=== PATIENT | female | born 1970 | race African-American/Black ===

== ENCOUNTER 2018-04-13 10:14 | Emergency (ER) | payer OTHER ==
[2018-04-13 10:21] VITALS: BMI 36.1
[2018-04-13] MEDS ORDERED: LABETALOL HCL 5 MG/1 ML (100MG/20 ML VIAL) IVPUSH ONE (10:29)
[2018-04-13] MEDS ORDERED: levETIRAcetam 500 MG/5 ML INJECTION VIAL IVPB ONE (10:30)
[2018-04-13] MEDS ORDERED: SODIUM CHLORIDE 1,000 ML IV SCH (10:30)
[2018-04-13 10:32] VITALS: TEMP 98.8
--- NOTE | 2018-04-13 10:38 | PDOC ---
Attending Attestation - Resident Resident Name: Ole Kc - ED Attending Attestation I have performed the following: I have examined & evaluated the patient, The case was reviewed & discussed with the resident, I agree w/resident's findings & plan, Exceptions are as noted - HPI HPI: 04/13/18 10:38 48 F with no PMH presents to ED with - Physicial Exam PE: 04/13/18 10:44 "GENERAL: Awake, alert, and fully oriented, in no acute distress. HEAD: No signs of trauma EYES: PERRLA, EOMI, sclera anicteric, conjunctiva clear ENT: Auricles normal inspection, hearing grossly normal, nares patent, oropharynx clear without exudates. Moist mucosa NECK: Nontender, no stepoffs, Normal ROM, supple, no lymphadenopathy, JVD, or masses LUNGS: Breath sounds equal, clear to auscultation bilaterally. No wheezes, and no crackles HEART: Regular rate and rhythm, normal S1 and S2, no murmurs, rubs or gallops ABDOMEN: Soft, nontender, normoactive bowel sounds. No guarding, no rebound. No masses EXTREMITIES: Normal range of motion, no edema. No clubbing or cyanosis. No cords, erythema, or tenderness NEUROLOGICAL: + R facial droop, + RUE and RLE weakness, + diminished sensation R side, + mild aphasia and dysarthria SKIN: Warm, Dry, normal turgor, no rashes or lesions noted. - Critical Care Time Total Critical Care Time: 60 Critical Care Statement: The care of this patient involved high complexity decision making to prevent further life threatening deterioration of the patient 's condition and/or to evaluate & treat vital organ system(s) failure or risk of failure. - Medical Decision Making 04/13/18 10:45 48 F with new R side weakness, LKN last night. CT head shows acute bleed L frontal area. No midline shift. Pt mentating and alert. Suspect HTN bleed given BP >200 systolic. - Labs - HOB 30 degrees - Cardene gtt for BP control Pt accepted to [facility] by richard Alicia NIH Stroke Scale - Last Known Well Date/Time & Onset Date Last Known Well: 04/12/18 Time Last Known Well: 21:00 - Initial Evaluation Level of consciousness: Alert Ask patient the month and their age: Answers both correctly Ask patient to open & close eyes; make fist and let go: Obeys both correctly Best gaze (horizontal eye movement): Normal Visual field testing: No visual field loss Facial paresis (Show teeth/raise eyebrows/close eyes tight): Partial paralysis ( total or near paralysis of lower face) Motor Function: Left Arm: Normal Motor Function: Right Arm: No effort against gravity Motor Function: Left Leg: Normal (extends leg 30 degrees for 5 seconds without drift) Motor Function: Right Leg: Drift Limb Ataxia: Present in one limb Sensory(Use pinprick test arms,legs,trunk,face/side to side): Mild to moderate decrease in sensation Best language (Describe picture, name items, read sentences): Mild to moderate aphasia Dysarthria (read several words): Mild to moderate slurring of words Extinction and Inattention: No abnormality - Total Score NIH Stroke Scale Score: 10
[2018-04-13 10:39] LABS: BASO % 0.2 % (0-2.0); EOS % 0.8 % (0-4.5); HEMATOCRIT 36.1 % (32.4-45.2); HEMOGLOBIN 11.5 GM/dL (10.7-15.3); LYMPH % 9.6 % (8-40); MCH 28.5 pg (25.7-33.7); MEAN CELL VOLUME 89.2 fl (80-96); MEAN PLT VOLUME 8.5 fl (7.5-11.1); MONO % 3.8 % (3.8-10.2); NEUT % 85.6 % (42.8-82.8); PLATELET COUNT 333 K/MM3 (134-434); RBC 4.05 M/mm3 (3.60-5.2); RDW 14.4 % (11.6-15.6); WHITE BLOOD COUNT 11.5 K/mm3 (4.0-10.0)
[2018-04-13] MEDS ORDERED: NICARDIPINE 25 MG in DEXTROSE 5%-WATER - 240 ML IVPB SCH (10:45)
[2018-04-13 10:56] LABS: INR 0.92 (0.83-1.09); PROTHROMBIN TIME (PATIENT) 10.9 SEC (9.7-13.0)
--- NOTE | 2018-04-13 10:58 | PDOC ---
History of Present Illness - General Chief Complaint: CVA/TIA Stated Complaint: STROKE Time Seen by Provider: 04/13/18 10:16 History Source: Patient Exam Limitations: No Limitations - History of Present Illness Initial Comments: 04/13/18 11:08 48 yo F with no medical history without anti-coagulation presents to the emergency department with right sided weakness and right facial droop that began when she woke up this morning at approximately 9am. She went to bed at 9- 10 pm asymptomatic which is considered her last well known. Per the patient, she was unable to walk to the bathroom and EMS was called. On presentation, the patient was mentating well and denied recent head trauma. Denies the following: pain, fever, chills, ears/nose/throat pain, nausea, vomiting, visual changes, SOB, chest pain, abdominal pain, dysuria, hematuria, diarrhea, hematochezia, diarrhea, and leg pain/swelling Shx: None meds: none allergies: NKDA Social: Denies tobacco, alcohol, and substance abuse. 04/13/18 11:22 tPA Exclusion Checklist 0-3hr - Time Elapsed Date last known well: 04/12/18 Time last known well: 21:00 Elaspsed time: Day(s) and 14 Hour(s) and 19 Minutes - Thrombolytic Therapy Candidate Is the patient eligible for Thrombolytic Therapy?: No - Exclusion Criteria 0-3hr SBP greater than 185 or DBP greater than 110mmHg despite tx: Yes Recent IC/spinal surgery,head trauma or stroke w/in last 3mo: No Hx of previous IC hemorrhage, IC neoplasm, AVM or aneurysm: No Active internal bleeding: No Blding diathesis(low plt ct, inc PTT,INR>1.7 or use of NOAC): No Symptoms suggest subarachnoid hemorrhage: No CT demonstrates multilobar infarct(>1/3 cerebral hemiphere): No Arterial puncture at noncompressible site in previous 7 days: No Blood glucose concentration less than 50mg/dL (2.7mmol/L): No - Relative Exclusion Criteria 0-3h Life expectancy <1yr/severe co-morbid illness/[employer] on admit: No : No Patient/family refused: No Rapid improvement: No Stroke severity too mild: No Recent acute SC (w/in previous 3 months): No Seizure at onset with postictal residual neuro impairments: No Major surgery or serious trauma w/in previous 14 days: No Recent GI or hemorrhage (w/in previous 21 days): No - Ineligibility reason(s) Reasons No tPA given: See reason(s) noted above NIH Stroke Scale - Last Known Well Date/Time & Onset Date Last Known Well: 04/12/18 Time Last Known Well: 21:00 - Initial Evaluation Level of consciousness: Alert Ask patient the month and their age: Answers both correctly Ask patient to open & close eyes; make fist and let go: Obeys both correctly Best gaze (horizontal eye movement): Normal Visual field testing: No visual field loss Facial paresis (Show teeth/raise eyebrows/close eyes tight): Partial paralysis ( total or near paralysis of lower face) Motor Function: Left Arm: Normal Motor Function: Right Arm: No effort against gravity Motor Function: Left Leg: Normal (extends leg 30 degrees for 5 seconds without drift) Motor Function: Right Leg: Drift Limb Ataxia: Present in one limb Sensory(Use pinprick test arms,legs,trunk,face/side to side): Mild to moderate decrease in sensation (right leg) Best language (Describe picture, name items, read sentences): Mild to moderate aphasia Dysarthria (read several words): Mild to moderate slurring of words Extinction and Inattention: No abnormality - Total Score NIH Stroke Scale Score: 10 Past History - Past Medical History Allergies/Adverse Reactions: Allergies Allergy/AdvReac Type Severity Reaction Status Date / Time tomato Allergy Verified 04/13/18 10:17 Home Medications: Ambulatory Orders NK [No Known Home Medication] 04/13/18 COPD: No - Suicide/Smoking/Psychosocial Hx Smoking History: Unknown if ever smoked Have you smoked in the past 12 months: No Information on smoking cessation initiated: No Hx Alcohol Use: No Drug/Substance Use Hx: No Review of Systems - Review of Systems Able to Perform ROS?: Yes Is the patient limited Syriac proficient: No Constitutional: Yes: Weakness. No: Chills, Diaphoresis, Fever HEENTM: No: Eye Pain, Blurred Vision, Recent change in vision, Double Vision, Ear Pain, Nose Pain, Throat Pain, Mouth Pain Respiratory: No: Cough, Shortness of Breath, SOB with Exertion, Hemoptysis Cardiac (ROS): No: Chest Pain, Edema, Lightheadedness, Palpitations, Syncope, Chest Tightness ABD/GI: No: Constipated, Diarrhea, Nausea, Poor Appetite, Poor Fluid Intake, Rectal Bleeding, Vomiting, Indigestion, Abdominal cramping, Tarry Stools : No: Burning, Dysuria, Hematuria, Pain, Urgency Musculoskeletal: No: Back Pain, Gout, Joint Pain, Neck Pain Neurological: Yes: Numbness (right leg), Weakness (right arm leg and weakness), Ataxia. No: Headache, Paresthesia, Tingling, Tremors, Dizziness Psychiatric: No: Stressors Endocrine: No: Unexplained Weight Gain Hematologic/Lymphatic: No: Anemia *Physical Exam - Vital Signs Last Vital Signs Temp Pulse Resp BP Pulse Ox 98.8 F 92 H 18 222/111 H 100 04/13/18 10:32 04/13/18 10:40 04/13/18 10:40 04/13/18 10:40 04/13/18 10:41 - Physical Exam General Appearance: Yes: Nourished, Appropriately Dressed. No: Apparent Distress, Disheveled, Intoxicated HEENT: positive: EOMI, PRINCE, Normal Voice, Symmetrical, Pharynx Normal, Hearing Grossly Normal. negative: Pale Conjunctivae, Scleral Icterus (R), Scleral Icterus (L), Muffled/Hoarse voice, Nasal Congestion, Rhinorrhea, Sinus Tenderness, Excessive drooling Neck: positive: Trachea midline. negative: Tender, Lymphadenopathy (R), Lymphadenopathy (L), Tender lateral, Tender midline Respiratory/Chest: positive: Lungs Clear, Normal Breath Sounds. negative: Chest Tender, Respiratory Distress, Accessory Muscle Use Cardiovascular: positive: Regular Rhythm, Regular Rate, S1, S2. negative: Systolic Murmur Gastrointestinal/Abdominal: positive: Normal Bowel Sounds, Flat, Soft. negative : Tender, Distended Lymphatic: negative: Adenopathy Musculoskeletal: positive: Normal Inspection. negative: CVA Tenderness, Vertebral Tenderness Extremity: positive: Normal Capillary Refill, Normal Inspection, Normal Range of Motion. negative: Tender, Swelling, Calf Tenderness Integumentary: positive: Normal Color, Dry, Warm Neurologic: positive: Fully Oriented, Alert, Normal Mood/Affect, Normal Response , Facial Droop (right side), Sensory Deficit (right leg). negative: math tutor II-XII NML intact (refer to NIHSS), Motor Strength 5/5, EOM Palsy, Finger to Nose ( unable to do on right arm), Confused, Disoriented Moderate Sedation - Procedure Monitoring Vital Signs: Procedure Monitoring Vital Signs Temperature 98.8 F 04/13/18 10:32 Pulse Rate 92 H 04/13/18 10:40 Respiratory Rate 18 04/13/18 10:40 Blood Pressure 222/111 H 04/13/18 10:40 O2 Sat by Pulse Oximetry (%) 100 04/13/18 10:41 ED Treatment Course - LABORATORY CBC & Chemistry Diagram: 04/13/18 10:29 04/13/18 10:29 - ADDITIONAL ORDERS Additional order review: Laboratory Results 04/13/18 10:29 PT with INR 10.90 INR 0.92 04/13/18 10:29 RBC 4.05 MCV 89.2 MCHC 32.0 RDW 14.4 MPV 8.5 Neutrophils % 85.6 H Lymphocytes % 9.6 Monocytes % 3.8 Eosinophils % 0.8 Basophils % 0.2 - RADIOLOGY Radiology Studies Ordered: Category Date Time Status CHEST X-RAY PORTABLE* [RAD] Stat Radiology 04/13/18 10:28 Completed Medical Decision Making - Medical Decision Making 04/13/18 11:22 48 yo F with no medical history without anti-coagulation presents to the emergency department with right sided weakness and right facial droop that began when she woke up this morning at approximately 9am. Initial vitals: Initial Vital Signs Pulse Resp BP Pulse Ox 98 H 18 212/84 H 98 04/13/18 10:17 04/13/18 10:17 04/13/18 10:17 04/13/18 10:17 Work up: harry freire was called at initial presentation of the patient. concerning right arm weakness and right facial droop. will rule out CVA hemorrhage vs ischemia. Others in ddx include metabolic disturbance vs infectious etiology Laboratory Tests 04/13/18 04/13/18 04/13/18 10:29 10:29 10:29 WBC 11.5 H RBC 4.05 Hgb 11.5 Hct 36.1 MCV 89.2 MCH 28.5 MCHC 32.0 RDW 14.4 Plt Count 333 MPV 8.5 Absolute Neuts (auto) 9.8 H Neutrophils % 85.6 H Lymphocytes % 9.6 Monocytes % 3.8 Eosinophils % 0.8 Basophils % 0.2 Nucleated RBC % 0 PT with INR 10.90 INR 0.92 Sodium 137 Potassium 4.5 Chloride 104 Carbon Dioxide 29 Anion Gap 5 L BUN 25 H Creatinine 1.8 H Creat Clearance w eGFR 30.16 Random Glucose 264 H Calcium 8.4 L Total Bilirubin 0.3 AST 18 ALT 22 Alkaline Phosphatase 105 Creatine Kinase 199 H Creatine Kinase Index 1.3 CK-MB (CK-2) 2.7 Troponin I < 0.02 Total Protein 7.1 Albumin 2.9 L Triglycerides 115 Cholesterol 250 H Total LDL Cholesterol 139 H HDL Cholesterol [address] shows acute left cerebral hemorrhage. transfer call was [facility] to [facility]. Dr. Alicia accepted transfer. the patient was transferred with nicardipine drip running with titration to goal SBP of 160 mmhg. Dispo: Transfer 04/13/18 11:24 *DC/Admit/Observation/Transfer Diagnosis at time of Disposition: Cerebrovascular accident (CVA) Qualifiers: CVA mechanism: unspecified Qualified Code(s): I63.9 - Cerebral infarction, unspecified - Referrals Referrals: Peterson Luna MD [Primary Care Provider] - - Patient Instructions - Post Discharge Activity
[2018-04-13 11:07] LABS: ALBUMIN 2.9 g/dl (3.4-5.0); ALK PHOS 105 U/L (45-117); ANION GAP 5 MMOL/L (8-16); BILIRUBIN,TOTAL 0.3 mg/dL (0.2-1); BLOOD UREA NITROGEN 25 mg/dL (7-18); CALCIUM 8.4 mg/dL (8.5-10.1); CHLORIDE 104 mmol/L (98-107); CHOLESTEROL 250 mg/dL (50-200); CO2 29 mmol/L (21-32); CREATININE 1.8 mg/dL (0.55-1.3); GLUCOSE,RANDOM 264 mg/dL (74-106); HDL CHOLESTEROL 82 mg/dL (40-60); POTASSIUM 4.5 mmol/L (3.5-5.1); SGOT/AST 18 U/L (15-37); SGPT/ALT 22 U/L (13-61); SODIUM 137 mmol/L (136-145); TOT PROT 7.1 g/dl (6.4-8.2); TRIGLYCERIDES 115 mg/dL (0-150)
[2018-04-13 11:14] VITALS: BP 180/81; PULSE 98
--- NOTE | 2018-04-13 15:42 | EKG ---
Test Reason : Blood Pressure : / mmHG Vent. Rate : 092 BPM Atrial Rate : 092 BPM P-R Int : 128 ms QRS Dur : 092 ms QT Int : 354 ms P-R-T Axes : 038 011 015 degrees QTc Int : 437 ms NORMAL SINUS RHYTHM MODERATE VOLTAGE CRITERIA FOR LVH, MAY BE NORMAL VARIANT CANNOT RULE OUT SEPTAL INFARCT , AGE UNDETERMINED ABNORMAL ECG NO PREVIOUS ECGS AVAILABLE Confirmed by GLORIA PEDRO MD ([id number]) on 04/13/2018 3:42:13 PM Referred By: Confirmed By:GLORIA PEDRO MD
== END 2018-04-13 11:15 | disposition short-term general hospital (02) ==
LOC: JER 10:14
DX: I63.9 Cerebral infarction, unspecified (principal)
CPT/HCPCS: 36415; 70450-TC; 71045-TC-FY; 80053; 82465; 82550; 82553; 83718; 83721; 84478; 84484; 84703; 85025; 85610; 86850; 86900; 86901; 93005; 93010; 99285-25; J7030